=== PATIENT | male | born 1950 | race Two or more races ===

== ENCOUNTER → 2017-04-02 | Outpatient (REF) | payer MEDICARE | LOC: M SMT 17:18 | PROVIDERS: ATTEND Nurse Practitioner Family | DX: N40.1 Benign prostatic hyperplasia with lower urinary tract symptoms (principal) | CPT/HCPCS: 51798; 81001; 87086; G0463 ==

== ENCOUNTER → 2018-03-19 | Outpatient (REF) | payer MEDICARE ==
[2018-03-19 18:31] LABS: APPEARANCE, URINE CLEAR (CLEAR); BACTERIA, URINE AUTO NEGATIVE (NEGATIVE); BILIRUBIN, URINE AUTO NEGATIVE (NEGATIVE); BLOOD, URINE BLOOD NEGATIVE (NEGATIVE); COLOR, URINE YELLOW (YELLOW); GLUCOSE, URINE (UA) AUTO NEGATIVE (NEGATIVE); KETONE, URINE AUTO NEGATIVE (NEGATIVE); LEUKOCYTE ESTERASE, URINE AUTO NEGATIVE (NEGATIVE); MUCUS, URINE SMALL (NEGATIVE); NITRITE, URINE AUTO NEGATIVE (NEGATIVE); PROTEIN, URINE AUTO NEGATIVE (NEGATIVE); RBC, URINE AUTO 0 /HPF (0-3); SQUAMOUS EPITHELIAL CELL UR AU 0 /HPF (0-6); UROBILINOGEN, URINE AUTO 0.2 mg/dL (0.0-2.0); WBC, URINE AUTO 1 /HPF (0-3)
== END ==
LOC: M SMT 16:59
DX: R32 Unspecified urinary incontinence (principal)
CPT/HCPCS: 81001

== ENCOUNTER → 2021-06-20 | Outpatient (CLI) | payer MEDICARE ==
[~2021-06-20] MED LIST: ECOT81TA5 PO; FINA5TAB2 PO; FLOM0.4C39 PO; LISI10TA22 PO; METO1TAB32 PO; PRIL20TA2 PO; SIMV20TA22 PO
== END ==
LOC: M LABSMTC 12:12
PROVIDERS: ATTEND Anesthesiology
DX: Z01.812 Encounter for preprocedural laboratory examination (principal); Z11.52 Encounter for screening for COVID-19

== ENCOUNTER 2021-06-23 09:08 | Day surgery (SDC) | payer MEDICARE ==
[~2021-06-23] VITALS: Ht 182.9 cm; Wt 104.1 kg
[~2021-06-23 09:08] MED LIST changes: +NS 1,000 ML IV ONE
[2021-06-23] MEDS ORDERED: LIDOCAINE 2% 100MG/5ML SDV (FOR ANES.) As Ordered ONE (10:30)
[2021-06-23] MEDS ORDERED: propofoL 200 MG/20 ML VIAL As Ordered ONE ×2 (10:30→10:31)
[2021-06-23 11:50] VITALS: BP 161/99
== END 2021-06-23 12:11 | disposition home or self-care (01) ==
LOC: M OPP 09:08
PROVIDERS: ATTEND Internal Medicine Gastroenterology
DX: Z12.11 Encounter for screening for malignant neoplasm of colon (principal); D12.6 Benign neoplasm of colon, unspecified; K64.8 Other hemorrhoids; K44.9 Diaphragmatic hernia without obstruction or gangrene; K31.89 Other diseases of stomach and duodenum; K29.70 Gastritis, unspecified, without bleeding; R10.13 Epigastric pain; R76.8 Other specified abnormal immunological findings in serum; Z79.82 Long term (current) use of aspirin; Z79.899 Other long term (current) drug therapy; Z87.891 Personal history of nicotine dependence; Z95.5 Presence of coronary angioplasty implant and graft

== ENCOUNTER → 2021-09-30 | Outpatient (REF) | payer MEDICARE ==
[~2021-09-30] MED LIST changes: -NS 1,000 ML IV ONE
[2021-09-30 14:08] LABS: AMORPHOUS SEDIMENT SMALL (NEGATIVE); APPEARANCE, URINE CLEAR (CLEAR); BACTERIA, URINE AUTO NEGATIVE (NEGATIVE); BILIRUBIN, URINE AUTO NEGATIVE (NEGATIVE); BLOOD, URINE BLOOD NEGATIVE (NEGATIVE); COLOR, URINE YELLOW (YELLOW); GLUCOSE, URINE (UA) AUTO NEGATIVE (NEGATIVE); KETONE, URINE AUTO NEGATIVE (NEGATIVE); LEUKOCYTE ESTERASE, URINE AUTO NEGATIVE (NEGATIVE); MUCUS, URINE SMALL (NEGATIVE); NITRITE, URINE AUTO NEGATIVE (NEGATIVE); PROTEIN, URINE AUTO NEGATIVE (NEGATIVE); RBC, URINE AUTO 0 /HPF (0-3); SPECIFIC GRAVITY URINE AUTO 1.021 (1.002-1.035); SQUAMOUS EPITHELIAL CELL UR AU 0 /HPF (0-6); UROBILINOGEN, URINE AUTO 0.2 mg/dL (0.0-2.0); WBC, URINE AUTO 1 /HPF (0-3)
== END ==
LOC: M SMT 13:13
PROVIDERS: ATTEND Urology
DX: R39.9 Unspecified symptoms and signs involving the genitourinary system (principal)

== ENCOUNTER → 2021-12-04 | Outpatient (CLI) | payer MEDICARE ==
[~2021-12-04] MED LIST changes: +BIMA1SOL; +BRIM0.2S13; +OXYC1TAB23 PO
== END ==
LOC: M LABSMTC 09:29
PROVIDERS: ATTEND Anesthesiology
DX: Z20.828 Contact with and (suspected) exposure to other viral communicable diseases (principal); Z11.59 Encounter for screening for other viral diseases

== ENCOUNTER 2021-12-06 06:09 | Day surgery (SDC) | payer MEDICARE ==
[~2021-12-06] VITALS: Ht 182.9 cm; Wt 104.1 kg
[~2021-12-06 06:09] MED LIST changes: -OXYC1TAB23 PO
[2021-12-06] MEDS ORDERED: LR 1,000 ML IV SCH ×2 (06:40→12:55)
[2021-12-06 07:15] LABS: HEMATOCRIT 41.3 % (42.0-52.0); HEMOGLOBIN 14.1 g/dl (13.5-17.5); MEAN CORPUSCULAR HEMOGLOBIN 31.8 pg (27.0-33.0); MEAN CORPUSCULAR HGB CONC 34.1 g/dl (32.0-36.5); PLATELET COUNT, AUTOMATED 170 10^3/uL (150-450); RED BLOOD COUNT 4.44 10^6/uL (4.30-6.10); WHITE BLOOD COUNT 6.8 10^3/uL (4.0-10.0)
[2021-12-06] MEDS ORDERED: BUPIVACAINE HCL 0.25% 30ML VIAL As Ordered ONE (07:19)
[2021-12-06 07:47] LABS: CALCIUM LEVEL 8.8 MG/DL (8.8-10.2); CREATININE FOR GFR 2.2 MG/DL (0.70-1.30); GLOMERULAR FILTRATION RATE 31.5 (>42); POTASSIUM SERUM 3.9 MEQ/L (3.5-5.1)
[2021-12-06] MEDS ORDERED: SUGAMMADEX SODIUM 500 MG/5 ML VIAL (BRIDION) As Ordered ONE (07:53)
[2021-12-06] MEDS ORDERED: fentaNYL 250 MCG/5 ML INJECTION As Ordered ONE (07:53)
[2021-12-06] MEDS ORDERED: KETOROLAC 60MG 2ML VIAL As Ordered ONE (07:53)
[2021-12-06] MEDS ORDERED: dexameTHASONE 4 MG/ML 1ML VIAL (J1100 PER 1MG) As Ordered ONE (07:53)
[2021-12-06] MEDS ORDERED: LIDOCAINE 2% 100MG/5ML SDV (FOR ANES.) As Ordered ONE (07:53)
[2021-12-06] MEDS ORDERED: MIDAZOLAM INJ 2MG/2ML VIAL (J2250 PER 1MG) As Ordered ONE (07:53)
[2021-12-06] MEDS ORDERED: ROCURONIUM BROMIDE 50 MG/5 ML VIAL As Ordered ONE ×3 (07:53→11:03)
[2021-12-06] MEDS ORDERED: propofoL 200 MG/20 ML VIAL As Ordered ONE (07:53)
[2021-12-06] MEDS ORDERED: ONDANSETRON 4MG 2ML VIAL As Ordered ONE (07:53)
[2021-12-06] MEDS ORDERED: ePHEDrine SULFATE 25 MG/5 ML(5MG/ML) SYRINGE As Ordered ONE (07:56)
[2021-12-06] MEDS ORDERED: ACETAMINOPHEN 1000MG 100ML IV BTL (OFIRMEV) (J0131 PER 10MG) As Ordered ONE (08:13)
[2021-12-06] MEDS ORDERED: METOPROLOL 5 MG/5 ML VIAL As Ordered ONE (08:34)
[2021-12-06] MEDS ORDERED: ceFAZolin 2 GM/D5W 50 ML IV BAG (J0690 PER 500MG) As Ordered ONE (09:04)
[2021-12-06] MEDS ORDERED: METHYLENE BLUE 0.5% (5MG/ML) 10 ML AMP (PROVAYBLUE) As Ordered ONE (09:24)
[2021-12-06] MEDS ORDERED: fentaNYL 100 MCG/2 ML INJECTION As Ordered ONE (11:04)
[2021-12-06] MEDS ORDERED: ONDANSETRON 4MG 2ML VIAL IV PRN (12:55)
[2021-12-06] MEDS ORDERED: HYDROMORPHONE HCL 0.5 MG/ 0.5 ML SYRINGE (J1170 PER 1) IV PRN (12:55)
[2021-12-06] MEDS: fentaNYL 100 MCG/2 ML INJECTION IV PRN ×4 (13:27→13:52)
[2021-12-06] MEDS: oxyCODONE 5MG TAB PO PRN ×2 (13:38→14:05)
[2021-12-06] MEDS ORDERED: ACETAMINOPHEN TAB 650MG DOSE (2X325MG) PO PRN (15:00)
[2021-12-06] MEDS ORDERED: NORCO, ANEXSIA 5/325MG TABLET (HYDROcodone/ACETAMINOPHEN) PO PRN (15:00)
[2021-12-06 15:15] VITALS: BP 133/71
[2021-12-06] MEDS ORDERED: OXYC1TAB23 PO (15:49)
== END 2021-12-06 15:45 | disposition home or self-care (01) ==
LOC: M SDC 06:09
PROVIDERS: ATTEND Surgery
DX: K40.20 Bilateral inguinal hernia, without obstruction or gangrene, not specified as recurrent (principal); I10 Essential (primary) hypertension; I25.2 Old myocardial infarction; E78.5 Hyperlipidemia, unspecified; Z98.61 Coronary angioplasty status; K21.9 Gastro-esophageal reflux disease without esophagitis; N40.0 Benign prostatic hyperplasia without lower urinary tract symptoms; Z79.82 Long term (current) use of aspirin; Z79.899 Other long term (current) drug therapy; R19.7 Diarrhea, unspecified
CPT/HCPCS: 36415; 49650; 80048; 85027; 88302; C1781; J0131; J0690; J1100; J1885; J2250; J2405; J3010; Q9968; S2900